=== PATIENT | female | born 1960 | race Caucasian/White ===

== ENCOUNTER 2018-05-10 09:16 | Emergency (ER) | payer OTHER ==
--- NOTE | 2018-05-10 10:29 | RAD REPORT ---
EXAM DESCRIPTION: CT - Head C Spine Mpr Wo Con - 05/10/2018 10:07 am CLINICAL HISTORY: Head and neck injury status post trauma. Head and neck pain COMPARISON: None. TECHNIQUE: Computed axial tomography of the head and cervical spine was obtained. Sagittal and coronal reconstruction was performed. All CT scans are performed using dose optimization technique as appropriate and may include automated exposure control or mA/KV adjustment according to patient size. FINDINGS: An intracranial bleed is not seen. The ventricles are normal in caliber. An extra-axial fl uid collection is not noted.Fluid within the visualized sinuses and mastoids is not seen A cervical fracture is not visualized. No dislocation is noted. IMPRESSION: No acute intracranial abnormality is seen. A cervical fracture is not visualized. If the patient continues to have symptoms to suggest intracra nial /spinal cord pathology then MRI would be recommended
[2018-05-10] MEDS ORDERED: PROMETHAZINE 25 MG/ML VIAL ONE (10:53)
[2018-05-10] MEDS ORDERED: NA CHLORIDE 0.9% 1,000 ML ONE ×2 (10:53→12:36)
[2018-05-10 11:19] LABS: Absolute Lymphocytes (CBC) 0.4 K/uL (0.7-4.9); Absolute Monocytes 0.2 K/uL (0.1-1.3); Absolute Neutrophil 5.9 K/uL (1.8-8.0); Basophils % 0.2 % (0-1.3); Eosinophils % 0.2 % (0-4.4); Lymphocytes % 5.8 % (15.3-44.8); Monocytes % 3.1 % (3.3-12.3); RBC Red Blood Cell Count 5.06 M/uL (3.86-4.86)
[2018-05-10] MEDS ORDERED: KETOROLAC 30 MG/ML INJ ONE (11:20)
[2018-05-10 11:32] LABS: Potassium 3.8 mmol/L (3.5-5.1)
[2018-05-10 12:34] LABS: Urine White Blood Cell Casts OK
[2018-05-10 12:35] LABS: Blood Morphology Comment NOT SEEN (NOT SEEN); Platelet Estimate ADEQ
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
--- NOTE | 2018-05-10 14:04 | EDPHYS ---
Physician Documentation [facility] Name: Maryellen Netltes Age: 57 yrs Sex: Female : 1960 Arrival Date: 05/10/2018 Time: 09:18 Bed 5 Private MD: ED Physician Lele Lowry HPI: 05/10 11:01 This 57 yrs old Female presents to ER via Ambulatory with complaints of snw Vomiting, Headache - injury x2days ago. 11:01 The patient presents to the emergency department with nausea, vomiting, diarrhea, 11 snw times today. Onset: The symptoms/episode began/occurred suddenly, this morning. Possible causes: recent head injury, no LOC, + headache. The symptoms are aggravated by movement, food . Associated signs and symptoms: The patient has no apparent associated signs or symptoms. Severity of symptoms: At their worst the symptoms were moderate severe. The patient has not experienced similar symptoms in the past. It is unknown whether or not the patient has recently seen a physician. Historical: - Allergies: :33 No Known Allergies; hj - Home Meds: :33 None [Active]; hj - PMHx: :33 COPD; hj - PSHx: :33 Hysterectomy; hj - Immunization history:: Adult Immunizations not up to date. - Social history:: Smoking status: Patient/guardian denies using tobacco, Patient uses alcohol. - Ebola Screening: : Patient negative for fever greater than or equal to 101.5 degrees Fahrenheit, and additional compatible Ebola Virus Disease symptoms Patient denies exposure to infectious person Patient denies travel to an Ebola-affected area in the 21 days before illness onset. ROS: 10:59 Constitutional: Negative for fever, chills, and weight loss, Eyes: Negative for injury, snw pain, redness, and discharge, ENT: Negative for injury, pain, and discharge, Neck: Negative for injury, pain, and swelling, Cardiovascular: Negative for chest pain, palpitations, and edema, Respiratory: Negative for shortness of breath, cough, wheezing, and pleuritic chest pain, Abdomen/GI: Negative for abdominal pain and constipation, Positive for nausea, vomiting, diarrhea Back: Negative for injury and pain, : Negative for injury, bleeding, discharge, and swelling, MS/Extremity: Negative for injury and deformity, Skin: Negative for injury, rash, and discoloration. 10:59 Neuro: Positive for headache. Exam: 10:59 Constitutional: This is a well developed, well nourished patient who is awake, alert, snw and in no acute distress. Head/Face: Normocephalic, atraumatic. Eyes: Pupils equal round and reactive to light, extra-ocular motions intact. Lids and lashes normal. Conjunctiva and sclera are non-icteric and not injected. Cornea within normal limits. Periorbital areas with no swelling, redness, or edema. ENT: Nares patent. No nasal discharge, no septal abnormalities noted. Tympanic membranes are normal and external auditory canals are clear. Oropharynx with no redness, swelling, or masses, exudates, or evidence of obstruction, uvula midline. Mucous membranes moist. Neck: Trachea midline, no thyromegaly or masses palpated, and no cervical lymphadenopathy. Supple, full range of motion without nuchal rigidity, or vertebral point tenderness. No Meningismus. Chest/axilla: Normal chest wall appearance and motion. Nontender with no deformity. No lesions are appreciated. Cardiovascular: Tachy rate and rhythm with a normal S1 and S2. No gallops, murmurs, or rubs. Normal PMI, no JVD. No pulse deficits. Respiratory: Lungs have equal breath sounds bilaterally, clear to auscultation and percussion. No rales, rhonchi or wheezes noted. No increased work of breathing, no retractions or nasal flaring. Abdomen/GI: Soft, non-tender, with normal bowel sounds. No distension or tympany. No guarding or rebound. No evidence of tenderness throughout. Back: No spinal tenderness. No costovertebral tenderness. Full range of motion. Skin: Warm, dry with normal turgor. Normal color with no rashes, no lesions, and no evidence of cellulitis. MS/ Extremity: Pulses equal, no cyanosis. Neurovascular intact. Full, normal range of motion. Neuro: Awake and alert, GCS 15, oriented to person, place, time, and situation. Cranial nerves II-XII grossly intact. Motor strength 5/5 in all extremities. Sensory grossly intact. Cerebellar exam normal. Normal gait. Vital Signs: 09:34 BP 93 / 58; Pulse 102; Resp 18; Temp 98.4(O); Pulse Ox 100% on R/A; Weight 58.97 kg; hj Height 5 ft. 4 in. (162.56 cm); Pain 8/10; 11:35 BP 114 / 65; Pulse 82; Resp 16; Pulse Ox 98% ; sv 12:30 BP 109 / 67; Pulse 98; Resp 18; Pulse Ox 95% ; sv 13:30 BP 118 / 78; Pulse 87; Resp 18; Temp 97.9; Pulse Ox 98% on R/A; ph 09:34 Body Mass Index 22.32 (58.97 kg, 162.56 cm) hj MDM: 10:24 Patient medically screened. snw 12:45 Data reviewed: vital signs, nurses notes. Data interpreted: Pulse oximetry: on room air snw is 98 %. Interpretation: acceptable. Counseling: I had a detailed discussion with the patient and/or guardian regarding: the historical points, exam findings, and any diagnostic results supporting the discharge/admit diagnosis, the need for outpatient follow up, for definitive care. Response to treatment: the patient's symptoms have markedly improved after treatment. 05/10 10:28 Order name: CBC with Diff; Complete Time: 12:38 snw 05/10 10:28 Order name: Chem 7; Complete Time: 11:37 snw 05/10 09:53 Order name: CT Head C Spine; Complete Time: 10:32 snw 05/10 11:28 Order name: CBC Smear Scan; Complete Time: 12:38 EDMS Administered Medications: 10:48 Drug: NS 0.9% 1000 ml Route: IV; Rate: 1 bolus; Site: right forearm; ph 10:49 Drug: Phenergan 12.5 mg Route: IVP; Site: right forearm; ph 11:20 Drug: TORadol 30 mg Route: IVP; Site: right forearm; ph 12:55 Drug: NS 0.9% 1000 ml Route: IV; Rate: 1 bolus; Site: right forearm; ph Disposition: 18:15 Co-signature as Attending Physician, Lele Lowry MD I agree with the assessment and wa plan of care. Disposition: 05/10/18 14:03 Discharged to Home. Impression: Vomiting, Diarrhea, unspecified, Dehydration, Headache. - Condition is Stable. - Discharge Instructions: Food Choices to Help Relieve Diarrhea, Adult, Dehydration, Adult, Diarrhea, Adult, General Headache Without Cause, Nausea and Vomiting, Adult, Rehydration, Pediatric. - Prescriptions for promethazine 25 mg Oral Tablet - take 1 tablet by ORAL route every 6 hours As needed; 20 tablet. - Medication Reconciliation Form, Thank You Letter, Antibiotic Education, Prescription Opioid Use form. - Follow up: Private Physician; When: 2 - 3 days; Reason: Recheck today's complaints, Continuance of care, Re-evaluation by your physician. Follow up: Emergency Department; When: As needed; Reason: Worsening of condition. Signatures: Dispatcher [employer] EDMS Iva Ortiz, PICK OUT HAND-C PICK OUT HAND-Csnw Kimi Baca, RN RN aa5 Jenny Rae RN RN Obed Vickers RN RN Lele Lowry MD MD vt Corrections: (The following items were deleted from the chart) 14:22 14:03 05/10/2018 14:03 Discharged to Home. Impression: Vomiting; Diarrhea, unspecified; aa5 Dehydration; Headache. Condition is Stable. Discharge Instructions: Food Choices to Help Relieve Diarrhea, Adult, Dehydration, Adult, Diarrhea, Adult, General Headache Without Cause, Nausea and Vomiting, Adult, Rehydration, Pediatric. Prescriptions for promethazine 25 mg Oral Tablet - take 1 tablet by ORAL route every 6 hours As needed; 20 tablet. and Forms are Medication Reconciliation Form, Thank You Letter, Antibiotic Education, Prescription Opioid Use. Follow up: Private Physician; When: 2 - 3 days; Reason: Recheck today's complaints, Continuance of care, Re-evaluation by your physician. Follow up: Emergency Department; When: As needed; Reason: Worsening of condition. snw
== END 2018-05-10 14:22 | disposition home or self-care (01) ==
LOC: ER 09:16
DX: R11.2 Nausea with vomiting, unspecified (principal); R19.7 Diarrhea, unspecified; E86.0 Dehydration; R51 Headache; J44.9 Chronic obstructive pulmonary disease, unspecified
CPT/HCPCS: 36415; 70450; 72125; 80048; 85025; 96374; 96375; 99284; J2550; J7030